=== PATIENT | female | born 2000 | race Hispanic/Latino ===

== ENCOUNTER 2020-11-28 12:18 | Emergency (ER) | payer SELFPAY ==
[~2020-11-28] VITALS: Ht 154.9 cm; Wt 72.6 kg
[2020-11-28] MEDS ORDERED: ONDANSETRON HCL 4 MG ORAL DISINTEGRATING TAB PO ONE (12:30)
[2020-11-28] MEDS ORDERED: MAGNESIUM/ALUMINUM/SIMETHICONE 30 ML UDC PO ONE (12:30)
[2020-11-28 13:23] LABS: BASOPHILS % 0.3 % (0.0-1.0); EOSINOPHILS % 0.3 % (0.0-6.0); HEMOGLOBIN 10.3 g/dL (12.0-16.0); LYMPHOCYTES # (AUTO) 0.7 (1.0-3.2); LYMPHOCYTES % 10.2 % (18.0-39.1); MEAN CORPUSCULAR HEMOGLOBIN 19.3 pg (28-32); MEAN CORPUSCULAR HGB CONC 29.4 g/dL (31-35); MEAN CORPUSCULAR VOLUME 65.4 fL (81-99); MONOCYTES # (AUTO) 0.6 (0.2-0.8); MONOCYTES % 8.1 % (4.4-11.3); NEUTROPHILS # (AUTO) 5.7 (2.1-6.9); NEUTROPHILS % 80.5 % (38.7-80.0); PLATELET COUNT 311 x10e3/uL (140-360); RED BLOOD COUNT 5.35 x10e6/uL (3.6-5.1)
[2020-11-28 13:44] LABS: ANION GAP 14.7 mmol/L (8-16); CALCIUM 8.5 mg/dL (8.4-10.2); CREATININE, SERUM 0.66 mg/dL (0.57-1.11)
[2020-11-28 13:52] LABS: POTASSIUM 2.7 mmol/L (3.5-5.1)
[2020-11-28 13:59] LABS: ANISOCYTOSIS MODERATE; PLATELET ESTIMATE ADEQUATE
[2020-11-28 14:00] LABS: MICROCYTOSIS SLIGHT; OVALOCYTES FEW
[2020-11-28 14:01] LABS: PLATELET MORPHOLOGY COMMENT FEW LARGE; RBC MORPHOLOGY COMMENT ABNORMAL
[2020-11-28 14:02] LABS: PLATELET CLUMPS RARE
[2020-11-28] MEDS ORDERED: FERROUS SULFAT325 M1 PO (14:32)
[2020-11-28] MEDS ORDERED: POTASSIUM CHLORIDE 20 MEQ TAB CR PO ONE (14:45)
== END 2020-11-28 15:48 | disposition home or self-care (01) ==
LOC: ER 12:58
DX: Z32.02 Encounter for pregnancy test, result negative (principal); R11.2 Nausea with vomiting, unspecified; R94.31 Abnormal electrocardiogram [ECG] [EKG]
CPT/HCPCS: 36415; 80053; 84702; 85025; 93005; 99283; Q0162